=== PATIENT | female | born 1935 | race Caucasian/White ===

== ENCOUNTER → 2017-04-18 | Day surgery (SDC) | payer MEDICARE, OTHER ==
[2017-03-04 16:42] LABS: BASOPHILS # (AUTO) 0.1 (0.0-0.1); BASOPHILS % 0.8 % (0.0-1.0); EOSINOPHILS # (AUTO) 0.5 (0.0-0.4); HEMATOCRIT 45.3 % (34.2-44.1); LYMPHOCYTES # (AUTO) 3.6 (1.0-3.2); LYMPHOCYTES % 28.2 % (18.0-39.1); MEAN CORPUSCULAR HEMOGLOBIN 31.2 pg (28-32); MEAN CORPUSCULAR HGB CONC 33.1 g/dL (31-35); MEAN CORPUSCULAR VOLUME 94.2 fL (81-99); MONOCYTES # (AUTO) 1.3 (0.2-0.8); NEUTROPHILS # (AUTO) 7.1 (2.1-6.9); NEUTROPHILS % 56.5 % (38.7-80.0); PLATELET COUNT 391 x10e3/uL (140-360); RED BLOOD COUNT 4.81 x10e6/uL (3.6-5.1)
[2017-03-04 17:07] LABS: ALBUMIN 3.6 g/dL (3.5-5.0); ALBUMIN/GLOBULIN RATIO 0.8 (0.8-2.0); ANION GAP 14.8 mmol/L (8-16); CALCIUM 8.7 mg/dL (8.4-10.2); CREATININE, SERUM 0.99 mg/dL (0.57-1.11); POTASSIUM 3.8 mmol/L (3.5-5.1)
--- NOTE | 2017-03-04 19:17 | Diagnostic Imaging Report ---
PROCEDURE: Frontal and lateral views of the chest. COMPARISON: Chest x-ray 09/09/14 INDICATIONS: PRE-OP BREAST SURGERY TO REMOVE CANCER FINDINGS: Lines/tubes: None. Lungs: Diffuse hyperinflation. The diaphragms are flat. There is no evidence of mass or infiltrate. Mild bibasilar scarring is stable. The pulmonary vascular markings are normal. There is diffuse bronchial wall thickening suggestive of chronic bronchitis. Pleura: There is no pleural effusion or pneumothorax. Heart and mediastinum: The heart is mildly enlarged. Aorta is ectatic. No hilar lymphadenopathy. Bones: Diffusely demineralized. There is no focal osseous lesions. Surgical clips in left upper quadrant are stable. IMPRESSION: Stable pulmonary hyperinflation consistent with small airways disease. No acute cardiopulmonary process. Dictated by: Mj Clifford M.D. on 03/04/2017 at 19:25 Electronically approved by: Mj Clifford M.D. on 03/04/2017 at 19:25
[2017-04-15 13:10] LABS: BASOPHILS # (AUTO) 0.1 (0.0-0.1); BASOPHILS % 1.1 % (0.0-1.0); EOSINOPHILS # (AUTO) 0.6 (0.0-0.4); EOSINOPHILS % 6.1 % (0.0-6.0); HEMATOCRIT 43.7 % (34.2-44.1); HEMOGLOBIN 14.4 g/dL (12.0-16.0); LYMPHOCYTES % 32.8 % (18.0-39.1); MONOCYTES # (AUTO) 0.8 (0.2-0.8); MONOCYTES % 8.8 % (4.4-11.3); NEUTROPHILS # (AUTO) 4.7 (2.1-6.9); PLATELET COUNT 348 x10e3/uL (140-360); RED BLOOD COUNT 4.65 x10e6/uL (3.6-5.1); RED CELL DISTRIBUTION WIDTH 14.4 % (11.7-14.4)
[2017-04-15 13:27] LABS: ANION GAP 14.9 mmol/L (8-16); BLOOD UREA NITROGEN 13 mg/dL (7-26); BUN/CREATININE RATIO 15 (6-25); CALCIUM 8.9 mg/dL (8.4-10.2); CARBON DIOXIDE 27 mmol/L (22-29); CHLORIDE 106 mmol/L (98-107); CREATININE, SERUM 0.88 mg/dL (0.57-1.11); EST GLOMERULAR FILTRATION RATE > 60 ML/MIN (60-); GLUCOSE 86 mg/dL (74-118); POTASSIUM 3.9 mmol/L (3.5-5.1); SODIUM 144 mmol/L (136-145)
[~2017-04-18] MED LIST: ALLOPURINOL PO; BUMEX PO; BUPIVACAINE 0.25% 30ML SDV INJ ONE; DEXAMETHASONE SOD PHOS INJ 4 MG/ML VIAL ONE; FENTANYL CITRATE/PF 100MCG/2 ML INJ ONE; GLYCOPYRROLATE INJ 1MG/ 5 ML SYR ONE; KLOR-CON 1010 MEQ PO; LIDOCAINE HCL 2% LOCAL INJ 5 ML SDV VIAL INJ ONE; NEOSTIGMINE 5 MG/5ML SYR ONE; ONDANSETRON HCL INJ 2 MG/ML VIAL ONE; PENTAZOCINE-NA1 EACH PO; PHENYLEPHRINE HCL 1% 10 MG/ML VIAL ONE; POTASSIUM CHLO20 ME1 PO; PREVALITE PACKET4 GM PO; PROPOFOL IV EMULSION 10 MG/ML 20 ML VIAL ONE; ROCURONIUM BROMIDE 10 MG/ML 5ML VIAL ONE; SEVOFLURANE INHAL SOLN 250 ML PEN BTL ONE; TEMAZEPAM PO; ZOLOFT PO
--- NOTE | 2017-04-18 14:29 | Operative Report ---
DATE OF PROCEDURE: April 18, 2017 PREOPERATIVE DIAGNOSIS: Carcinoma of the left breast. POSTOPERATIVE DIAGNOSIS: Carcinoma of the left breast. OPERATION PERFORMED: Left partial mastectomy with left axillary sentinel node mapping and biopsy. ANESTHESIA: General. COMPLICATIONS: None. ESTIMATED BLOOD LOSS: 25 mL. DESCRIPTION OF PROCEDURE: With the patient lying in bed in the supine position under good general anesthesia, after having undergone a sentinel node mapping of the left axilla, the left breast was prepped with Betadine solution and draped in the usual manner. An incision was made in the upper outer aspect of the left breast. Incision was deepened into the subcutaneous tissue, and immediately a large mass was encountered. This appeared to extend all the way to the subareolar space underneath the nipple. The mass was then from underneath the nipple, and the margin of the nipple was then biopsied and sent for frozen section to make sure that it was not invaded, and this was benign. The mass was then slowly and carefully encircled. It was much larger than it appeared on the x-rays, but the mass was totally and completely removed with normal fat all the way around it and sent for pathological examination. Examination of the mass revealed that this was grossly contained within the specimen. The whole area was then thoroughly irrigated. Perfect hemostasis was ascertained. Using the same incision, the left axilla was then explored and the sentinel node was identified and slowly and carefully removed, and all of the attachments were ligated with 2-0 Vicryl and the lymph node was removed and sent for pathological examination. A 2nd lymph node in the area actually turned out to be some infiltration into the muscle itself. The whole area was then thoroughly irrigated. Perfect hemostasis was ascertained. The breast tissue that was left was then reapproximated with interrupted sutures of 2-0 chromic, and the skin was closed with interrupted vertical mattress sutures of 3-0 nylon. The family was explained after the procedure that because of the size of the mass, if any of the borders were to come back involved, the patient will need to have a mastectomy. The patient tolerated the procedure well and returned to the recovery room in stable condition. Job#: [id number]
--- NOTE | 2017-04-18 19:34 | Diagnostic Imaging Report ---
Lymphoscintigraphy Reason for Exam: Left breast cancer; scheduled for sentinel lymph node biopsy Radiopharmaceutical: Tc-99m filtered sulfur colloid 560 microcuries Report: The radiotracer was given as two separate injections intradermally at the edge of the left areola. A single focal area of markedly increased tracer accumulation is seen in the left axilla. Two additional foci of very mildly increased tracer accumulation are also seen higher in the left axilla. No accumulation of tracer is seen in the midline of the chest or in the neck. Impression: A single sentinel lymph node and two secondary lymph nodes are identified in the left axilla. Signed by: Dr. Beena Burnham M.D. on 04/18/2017 7:31 PM
== END | disposition home or self-care (01) ==
LOC: OR 08:26
PROVIDERS: ATTEND Surgery
DX: C50.912 Malignant neoplasm of unspecified site of left female breast (principal); C77.3 Secondary and unspecified malignant neoplasm of axilla and upper limb lymph nodes; I10 Essential (primary) hypertension; I44.7 Left bundle-branch block, unspecified; M06.9 Rheumatoid arthritis, unspecified; M19.90 Unspecified osteoarthritis, unspecified site; H91.90 Unspecified hearing loss, unspecified ear; K44.9 Diaphragmatic hernia without obstruction or gangrene; F32.9 Major depressive disorder, single episode, unspecified; Z01.810 Encounter for preprocedural cardiovascular examination; Z01.812 Encounter for preprocedural laboratory examination; Z01.818 Encounter for other preprocedural examination; Z87.01 Personal history of pneumonia (recurrent)
CPT/HCPCS: 19301; 36415 ×2; 38525; 38900; 71046; 78195; 80048; 80053; 85025 ×2; 88305; 88309; 88329; 88331; 93005; A9541; J1100; J2001; J2370; J2405

== ENCOUNTER 2017-06-08 08:26 | Observation (INO) | payer MEDICARE, OTHER ==
[2017-06-03 16:13] LABS: BASOPHILS # (AUTO) 0.1 (0.0-0.1); EOSINOPHILS # (AUTO) 0.4 (0.0-0.4); EOSINOPHILS % 4.9 % (0.0-6.0); HEMATOCRIT 42.6 % (34.2-44.1); HEMOGLOBIN 14.2 g/dL (12.0-16.0); LYMPHOCYTES # (AUTO) 3.3 (1.0-3.2); LYMPHOCYTES % 37.6 % (18.0-39.1); MEAN CORPUSCULAR HEMOGLOBIN 30.7 pg (28-32); MEAN CORPUSCULAR HGB CONC 33.3 g/dL (31-35); MEAN CORPUSCULAR VOLUME 92.2 fL (81-99); MONOCYTES # (AUTO) 0.8 (0.2-0.8); MONOCYTES % 9.7 % (4.4-11.3); NEUTROPHILS % 46.6 % (38.7-80.0); PLATELET COUNT 319 x10e3/uL (140-360); RED BLOOD COUNT 4.62 x10e6/uL (3.6-5.1); RED CELL DISTRIBUTION WIDTH 14.4 % (11.7-14.4)
[2017-06-03 16:28] LABS: ANION GAP 10.8 mmol/L (8-16); CALCIUM 8.9 mg/dL (8.4-10.2); CREATININE, SERUM 0.93 mg/dL (0.57-1.11); POTASSIUM 3.8 mmol/L (3.5-5.1)
[~2017-06-08] VITALS: Ht 165.1 cm; Wt 87.7 kg
[~2017-06-08 08:26] MED LIST changes: -BUPIVACAINE 0.25% 30ML SDV INJ ONE; -DEXAMETHASONE SOD PHOS INJ 4 MG/ML VIAL ONE; -FENTANYL CITRATE/PF 100MCG/2 ML INJ ONE; -GLYCOPYRROLATE INJ 1MG/ 5 ML SYR ONE; -LIDOCAINE HCL 2% LOCAL INJ 5 ML SDV VIAL INJ ONE; -NEOSTIGMINE 5 MG/5ML SYR ONE; -ONDANSETRON HCL INJ 2 MG/ML VIAL ONE; -PHENYLEPHRINE HCL 1% 10 MG/ML VIAL ONE; -PROPOFOL IV EMULSION 10 MG/ML 20 ML VIAL ONE; -ROCURONIUM BROMIDE 10 MG/ML 5ML VIAL ONE; -SEVOFLURANE INHAL SOLN 250 ML PEN BTL ONE
--- OUTSIDE RECORDS SUMMARY | 2017-06-08 08:28 | XMS REPORT ---
Author Author [facility] Address Unknown Phone Unavailable Care Team Providers Care Environmental Services Worker Name Role Phone LUPE EASLEY Unavailable Unavailable HECTOR, LIZY Unavailable Unavailable Problems This patient has no known problems. Allergies, Adverse Reactions, Alerts This patient has no known allergies or adverse reactions. Medications This patient has no known medications. Results Test Description Test Time Test Comments Text Results Atomic Results Result Comments NM LYMPHOSCINTIGRAPHY INCL INJ [place] [address] Patient Name: OSMANI COY MR #: [id number] : 1935 Age/Sex: 81/F Req #: [id number] Adm Physician: Ordered by: LUPE EASLEY MD Report #: [id number] Location: OR Room/Bed: Procedure: [id number] NM/NM LYMPHOSCINTIGRAPHY INCL INJ Exam Date: Exam Time: REPORT STATUS: Signed Lymphoscintigraphy Reason for Exam: Left breast cancer; scheduled for sentinel lymph node biopsy Radiopharmaceutical: Tc-99m filtered sulfur colloid 560 microcuries Report: The radiotracer was given as two separate injections intradermally at the edge of the left areola. A single focal area of markedly increased tracer accumulation is seen in the left axilla. Two additional foci of very mildly increased tracer accumulation are also seen higher in the left axilla. No accumulation of tracer is seen in the midline of the chest or in the neck. Impression: A single sentinel lymph node and two secondary lymph nodes are identified in the left axilla. Signed by: Dr. Gurjit Burnham M.D. on 04/18/2017 7:31 PM Dictated By: GURJIT BURNHAM MD 30 Transcribed By: CHATO on 04/18/171930 COPY TO: LUPE EASLEY MD CHEST 2 VIEWS [place] [address] Patient Name: OSMANI COY MR #: [id number] : 1935 Age/Sex: 81/F Req # : [id number] Adm Physician: Ordered by: LUPE EASLEY MD Report #: [id number] Location: OR Room/Bed: Procedure: [id number] DX/CHEST 2 VIEWS Exam Date: 03/04/17 Exam Time : 1640 REPORT STATUS: Signed PROCEDURE: Frontal and lateral views of the chest. COMPARISON: Chest x-ray 09/09/14 INDICATIONS: PRE-OP BREAST SURGERY TO REMOVE CANCER FINDINGS: Lines/tubes: None. Lungs: Diffuse hyperinflation. The diaphragms are flat. There is no evidence of mass or infiltrate. Mild bibasilar scarring is stable. The pulmonary vascular markings are normal. There is diffuse bronchial wall thickening suggestive of chronic bronchitis. Pleura: There is no pleural effusion or pneumothorax. Heart and mediastinum: The heart is mildly enlarged. Aorta is ectatic. No hilar lymphadenopathy. Bones: Diffusely demineralized. There is no focal osseous lesions. Surgical clips in left upper quadrant are stable. IMPRESSION: Stable pulmonary hyperinflation consistent with small airways disease. No acute cardiopulmonary process. Dictated by: Jonathan Clifford M.D. on 2017 at 19:25 Electronically approved by: Jonathan Clifford M.D. on 2017 at 19:25 Dictated By: JONATHAN CLIFFORD MD 24 Transcribed By : JEROME on 03/04/171924 COPY TO: LUPE EASLEY MD UNI DIG CONFIRM EMILY MAMMO LT [place] [address] Patient Name: OSMANI COY MR #: [id number] : 1935 Age/Sex: 81/F Req #: [id number] Adm Physician: Ordered by: LUPE EASLEY MD Report #: [id number] Location: Room/Bed: Procedure: [id number] MG/UNI DIG CONFIRM EMILY MAMMO LT Exam Date: 01/13/17 Exam Time: 1420 REPORT STATUS: Signed # [id number] - NLOCMAML #UNILATERAL LEFT SCREENING MAMMOGRAM POST-PROCEDURE IMAGING FOR MARKER PLACEMENT: 01/13/2017 Comparison is made to exams dated: 01/13/2017 ultrasound biopsy, 12/27/2016 ultrasound and 12/27/2016 mammogram - [facility]. The tissue of the left breast is heterogeneously dense. Multiple calcifications are present in the breast. Biopsy clip marker present amongst the calcifications. As there was no discrete mass present on the pre biopsy mammogram the exact location of the clip is indeterminate in significance. IMPRESSION: SUSPICIOUS OF MALIGNANCY Follow-up with ACR/ACS guidelines for post biopsy results. Ascencion Fraga Jr., D.O. cw/:01/13/2017 14:56:07 Armature Straightener: Gurjit SPENCE)(M), [facility] Mammogram BI-RADS: 4c Suspicious abnormality - moderate concern but not classic for malignancy Dictated By: ASCENCION FRAGA DO 55 Transcribed By: VALERI on 01/13/171455 COPY TO: LUPE EASLEY MD BX BRST 1ST LESION US IMAG-LT [place] [address] Patient Name: OSMANI COY MR #: [id number] : 1935 Age/Sex: 81/F Req #: [id number] Adm Physician: Ordered by: LUPE EASLEY MD Report #: [id number] Location: US Room/Bed: Procedure: [id number] US/BX BRST 1ST LESION US IMAG-LT Exam Date: Exam Time: REPORT STATUS: Signed THIS REPORT HAS BEEN AMENDED. #[id number] - [id number] ULTRASOUND GUIDED BIOPSY: 01/13/2017 PATIENT CONSENT: According to [facility] requirements, a time out was performed, correct site was localized and the patient was consented. PROCEDURE DESCRIPTION: Using full barrier sterile technique, 1% Lidocaine local anesthesia , and real time ultrasound guidance, the palpable mass at 3:00 in the left breast was biopsied using a 14 ga core device. A total of 5 core biopsies were performed. Specimens were submitted for histology. A micromarker was placed at the biopsy site for future reference. A sterile bandage was applied at the entry site. The patient was sent for a post biopsy mammogram with no immediate complications noted. Correlation is made to exams dated: ultrasound and 12/27/2016 mammogram - [facility]. IMPRESSION: ULTRASOUND GUIDED BIOPSY Follow-up with ACR/ACS guidelines. Ascencion reyes/valeri:01/14/2017 13:33:00 Armature Straightener: LOVE TA RT, [facility] [id number] AMENDMENT: 01/26/2017 Ascencion Fraga Jr., D.O. Results of the ultrasound guided breast biopsy are positive for invasive lobular carcinoma. Dictated By: ASCENCION FRAGA DO 1333 Transcribed By: VALERI on 1025 COPY TO: LUPE EASLEY MD US BREAST LIMITED LEFT [place] [address] Patient Name: OSMANI COY MR #: [id number] : 1935 Age/Sex: 81/F Req #: [id number] Adm Physician: Ordered by: LIZY HECTOR MD Report #: [id number] Location: MAMMO Room/Bed: Procedure: [id number] US/US BREAST LIMITED LEFT Exam Date: Exam Time: REPORT STATUS: Signed #[id number] - USBRELIMLT ULTRASOUND OF THE LEFT BREAST : 12/27/2016 Comparison is made to exam dated: 12/27/2016 mammogram - [facility]. Color flow and real-time ultrasound were performed on the left breast over the palpable left breast mass. -In the region of the palpable mass there is a highly suspicious hypoechoic ill defined shadowing mass at the 3 o' clock position measuring 2.6 x 2.2 cm. IMPRESSION: HIGHLY SUGGESTIVE OF MALIGNANCY Mass in the left breast is suspicious for malignancy and a biopsy is necessary A phone call was made to Dr. Blair Hector and the case was discussed. Ascencion Fraga Jr., D.O. cw/:12/27/2016 15:05 :36 Armature Straightener: LOVE EVANS, [facility] letter sent: Biopsy Required Ultrasound BI-RADS: 5 Highly suggestive of malignancy Dictated By: ASCENCION FRAGA DO 1502 Transcribed By: VALERI on 150 COPY TO: LIZY HECTOR MD MAMMOGRAPHY DIGITAL DX BILAT [place] [address] Patient Name: OSMANI COY MR #: [id number] : 1935 Age/Sex: 81/F Req #: [id number] [facility] Physician: Ordered by: LIZY HECTOR MD Report #: [id number] Location: MAMMO Room/Bed: Procedure: [id number] MG/MAMMOGRAPHY DIGITAL DX BILAT Exam Date: 12/27/16 Exam Time: 1246 REPORT STATUS: Signed # [id number] - MGDXBIL #BILATERAL DIGITAL DIAGNOSTIC MAMMOGRAM WITH CAD: No prior exams were available for comparison. Current study contains 6 films. The tissue of both breasts is heterogeneously dense. This may lower the sensitivity of mammography. Current study was also evaluated with a Computer Aided Detection (CAD) system. There are scattered calcifications and axillary lymph nodes in both breasts. -A palpable mass marker overlies the left breast in the upper outer aspect near the 3 o'clock position. There is adjacent to the marker tissue asymmetry and areas outlined as suspicious with CAD analysis. IMPRESSION: INCOMPLETE: NEEDS ADDITIONAL IMAGING EVALUATION Tissue asymmetry adjacent to a palpable mass marker requires additional evaluation. An ultrasound is recommended and will be performed today. Ascencion Fraga Jr., D.O. cw/: 15:13:00 Armature Straightener: Gurjit EVANS(R)(Lizzie), [facility] letter sent: Additional Imaging Needed Mammogram BI-RADS: 0 Indeterminate Dictated By: ASCENCION FRAGA DO 2571 Transcribed By: VALERI on 12/27/16 8236 COPY TO: LIZY HECTOR MD
[2017-06-08] MEDS: SODIUM CHLORIDE 0.9% 1000ML 1,000 ML IV SCH ×2 (10:41→20:41)
[2017-06-08] MEDS ORDERED: FENTANYL CITRATE/PF 100MCG/2 ML INJ ONE ×2 (10:44→17:50)
[2017-06-08] MEDS ORDERED: ONDANSETRON HCL INJ 2 MG/ML VIAL IV PRN (10:45)
[2017-06-08] MEDS ORDERED: ACETAMINOPHEN 1000 MG/100 ML IV PRN (10:45)
--- NOTE | 2017-06-08 12:38 | Operative Report ---
DATE OF PROCEDURE: June 08, 2017 PREOPERATIVE DIAGNOSIS: Carcinoma of the left breast. POSTOPERATIVE DIAGNOSIS: Carcinoma of the left breast. OPERATION PERFORMED: Left total mastectomy. THAI MASSEUR: CHRIS Bernstein. ANESTHESIA: General. COMPLICATIONS: None. ESTIMATED BLOOD LOSS: 75 mL. DESCRIPTION OF PROCEDURE: With the patient lying in bed in the supine position, under good general anesthesia, the left chest and breast were prepped with Betadine solution and draped in the usual manner. An elliptical incision was made to include the nipple-areolar complex as well as the previous incision from the previous lumpectomy. Incision was then deepened through the subcutaneous tissue, and flaps were then developed all the way around. The borders of the flaps were medially the sternum, superiorly the clavicle, inferiorly the rectus fascia and laterally the latissimus. The breast was then taken off the pectoralis major muscle with the cautery, and perfect hemostasis was ascertained. The entire breast was removed and sent for pathological examination. The whole area was thoroughly irrigated. Perfect hemostasis was ascertained. The 10 flat [place] drain was left in the wound and brought out through separate stab wound incision. The skin was then closed using interrupted vertical mattress sutures of 2-0 and 3-0 silk. A dressing was applied. The sponge, lap and needle count was correct. Patient tolerated the procedure well and returned to the recovery room in stable condition. Job#: [id number]
[2017-06-08 13:00] VITALS: BP 143/64
[2017-06-08] MEDS ORDERED: CEFAZOLIN SOD 1 GM/NS 50ML 50 ML IV SCH (14:00)
[2017-06-08 14:31] VITALS: BP 131/59
[2017-06-08 16:02] VITALS: BP 143/64
[2017-06-08] MEDS: PANTOPRAZOLE 40 MG 10ML VIAL IV SCH (16:21)
[2017-06-08] MEDS: CEFAZOLIN SOD 1 GM VIAL IV SCH (17:11)
[2017-06-08] MEDS ORDERED: PROPOFOL IV EMULSION 10 MG/ML 20 ML VIAL ONE (17:26)
[2017-06-08] MEDS ORDERED: DEXAMETHASONE SOD PHOS INJ 4 MG/ML VIAL ONE (17:26)
[2017-06-08] MEDS ORDERED: SEVOFLURANE INHAL SOLN 250 ML PEN BTL ONE (17:26)
[2017-06-08] MEDS ORDERED: ONDANSETRON HCL INJ 2 MG/ML VIAL ONE (17:26)
[2017-06-08] MEDS ORDERED: ROCURONIUM BROMIDE 10 MG/ML 5ML VIAL ONE (17:26)
[2017-06-08] MEDS ORDERED: LIDOCAINE HCL 2% LOCAL INJ 5 ML SDV VIAL INJ ONE (17:26)
[2017-06-08] MEDS ORDERED: GLYCOPYRROLATE INJ 1MG/ 5 ML SYR ONE (17:26)
[2017-06-08] MEDS ORDERED: NEOSTIGMINE 5 MG/5ML SYR ONE (17:26)
[2017-06-08] MEDS ORDERED: DIPHENHYDRAMINE HCL 25 MG CAP PO PRN (20:15)
[2017-06-08] MEDS: HYDROCODONE/APAP 7.5MG-325MG 1 EA TAB PO PRN (20:24)
[2017-06-08 20:31] VITALS: BP 123/57
[2017-06-08 23:27] VITALS: BP 123/57
[2017-06-09 00:01] VITALS: BP 116/56
[2017-06-09] MEDS: HYDROCODONE/APAP 7.5MG-325MG 1 EA TAB PO PRN ×2 (00:23→05:05)
[2017-06-09] MEDS: CEFAZOLIN SOD 1 GM VIAL IV SCH (01:01)
[2017-06-09 04:14] VITALS: BP 116/57
[2017-06-09] MEDS: SODIUM CHLORIDE 0.9% 1000ML 1,000 ML IV SCH (06:41)
[2017-06-09 07:57] VITALS: BP 147/67
[2017-06-09] MEDS ORDERED: POTASSIUM CHLORIDE 20 MEQ TAB CR PO SCH (09:00)
[2017-06-09] MEDS: PANTOPRAZOLE 40 MG 10ML VIAL IV SCH (10:09)
[2017-06-09 10:53] VITALS: BP 147/67
[2017-06-09 11:44] VITALS: BP 109/56
[2017-06-09] MEDS ORDERED: TYLENOL WITH C1 EACH PO (13:01)
[2017-06-09] MEDS ORDERED: KEFLEX500 MG PO (13:03)
== END 2017-06-09 13:55 | disposition home or self-care (01) ==
LOC: OR 08:26 → MED/SURG 13:23
PROVIDERS: ADMIT Surgery; ATTEND Surgery
DX: D05.82 Other specified type of carcinoma in situ of left breast (principal)
CPT/HCPCS: 19303; 36415; 80048; 85025; 88307; G0378 ×2; J0690 ×2; J1100; J2001; J2405; J7030

== ENCOUNTER → 2017-07-06 | Day surgery (SDC) | payer MEDICARE, OTHER ==
[~2017-07-06] MED LIST changes: +BUPIVACAINE 0.25%/EPI 30ML SDV INJ ONE; +CEFAZOLIN SOD 1 GM VIAL ONE; +EPHEDRINE SULFATE INJ 50 MG/10 ML SYR ONE; +FENTANYL CITRATE/PF 100MCG/2 ML INJ ONE; +KEFLEX500 MG PO; +LIDOCAINE HCL 1% LOCAL INJ 20 ML VIAL ONE; +LIDOCAINE HCL 2% LOCAL INJ 5 ML SDV VIAL INJ ONE; +NEOSTIGMINE 1 MG/ML 10ML VIAL ONE; +ONDANSETRON HCL INJ 2 MG/ML VIAL ONE; +PROPOFOL IV EMULSION 10 MG/ML 20 ML VIAL ONE; +TYLENOL WITH C1 EACH PO
--- OUTSIDE RECORDS SUMMARY | 2017-07-06 05:32 | XMS REPORT | Continuity of Care Document ---
Author Author [facility] Organization [facility] Address [address] [place] [address] Phone Unavailable Care Team Providers Care Medical Device Sales Consultant Name Role Phone LIZY OJEDA MD PCP Insurance Providers Guarantor Felicia Uriarte Address [address] [place] [address] Email N Payer Miscellaneous Ppo Policy Number [id number] Subscriber's Name ChanelleOziel yungcie N Relationship 18 Self / Same As Patient Group Number PLAN F Group Name RETIRED Effective Date 09 Payer Medicare A & B Policy Number [id number] Subscriber's Name Oziel Uriartecie N Relationship 18 Self / Same As Patient Group Number [id number] Group Name RETIRED Effective Date 98 Advance Directives Directive Response Recorded Date/Time Does the patient have an advance directive? Yes 06/08/17 1:00pm If yes, is advance directive on file with [facility]? No 06/08/17 1:00pm If not on file with [facility] will patient provide a copy? Yes 06/08/17 1:00pm Do you have a Directive to Physician? No 06/03/17 3:09pm Do you have a Medical Power of Transportation Economics Teacher? Yes 06/03/17 3:09pm Do you have an out of hospital Do Not Resuscitate Order? No 06/03/17 3:09pm Do you have any special needs we should be aware of? No 06/03/17 3:09pm Do you have a support person here with you today? Yes 06/03/17 3:10pm Did patient receive Notice of Privacy Practices? Yes 06/03/17 3:10pm Did patient receive patient rights and responsibilities? Yes 06/03/17 3:10pm Problems No problem information available. Medications Current Home Medications Medication Dose Units Route Directions Days Qty Instructions Start Date Acetaminophen With Codeine (Tylenol With Codeine #3 Tablet) 1 Each Tablet 300 Mg Oral as needed for Pain TAKE 1 OR 1.5 TAP EVERY 4-6 HOURS NEEDED FOR PAIN Bumex Oral Daily Cephalexin Monohydrate (Keflex) 500 Mg Capsule 500 Mg Oral Daily 15 Cholestyramine/Aspartame (Prevalite Packet) 4 Gm Packet Oral Daily Potassium Chloride 20 Meq Tab.er.prt Meq Oral Daily Zoloft Oral Daily Past Home Medications Medication Directions Ordered Status Allopurinol , 300 Mg Oral Daily Discontinued Bumex , 2 Mg Oral Daily Discontinued Pentazocine Hcl/Naloxone Hcl (Pentazocine-Naloxone Tablet) 1 Each Tablet, Oral As Needed Discontinued Potassium Chloride (Klor-Con 10) 10 Meq Tablet.er, 10 Meq Oral Daily Discontinued Temazepam , 30 Mg Oral Bedtime Discontinued Zoloft , 100 Mg Oral Daily Discontinued Social History Social History Problem Response Recorded Date/Time Onset Date Status Hx Psychiatric Problems No 06/08/2017 1:00pm Not Applicable Not Applicable Hx Eating Disorder No 07/29/2014 4:39pm Not Applicable Not Applicable Hx Substance Use Disorder No 07/29/2014 4:39pm Not Applicable Not Applicable Hx Depression Yes 06/08/2017 1:00pm Not Applicable Not Applicable Hx Alcohol Use No 06/08/2017 1:00pm Not Applicable Not Applicable Hx Substance Use Treatment No 06/08/2017 1:00pm Not Applicable Not Applicable Hx Physical Abuse No 06/08/2017 1:00pm Not Applicable Not Applicable Smoking Status Start Date Stop Date Never Smoker Hospital Discharge Instructions No hospital discharge instruction information available. Plan of Care Discharge Date 06/09/17 1:55pm Disposition HOME, SELF-CARE Instructions/Education Provided Infection Control Prescriptions See Medication Section Additional Instructions/Education REGULAR DIET ACTIVITY TOLERATED BUT AVOID LIFTING MORE THAN 20 POUNDS WITH LEFT HAND TILL APPOINTMENT WITH DR. EASLEY. SCHEDULE FOLLOW UP APPOINTMENT WITH HIM FOR TUESDAY/TUESDAY FOR REMOVAL OF DRAIN TEL: [phone] EMPTY DRAIN EVERY EVENING AND EVERY MORNING, RECORD THE OUTPUT AND BRING TO APPOINTMENT. Functional Status Query Response Date Recorded Ambulation Ability Minimum Assistance June 08, 2017 1:00pm Toileting Ability Minimum Assistance June 08, 2017 1:00pm Allergies, Adverse Reactions, Alerts No known allergies. Immunizations No immunization information available. Vital Signs Acute Vital Signs Vital Response Date/Time Temperature (Fahrenheit) 96.7 degrees F (97.6 - 99.5) 06/09/2017 11:44am Pulse Pulse Rate (adult) 56 bpm (60 - 90) 06/09/2017 11:44am Respiratory Rate 16 bpm (12 - 24) 06/09/2017 11:44am Blood Pressure 109/56 mm Hg 06/09/2017 11:44am Height 5 ft 5 in 06/08/2017 1:00pm Weight 193.38 lb 06/08/2017 2:32pm Body Mass Index 32.2 kg/m^2 06/08/2017 2:32pm Results Laboratory Results Test Name Result Units Flags Reference Collection Date/Time Result Date/ Time Comments Total Bilirubin 0.6 mg/dL 0.2-1.2 03/04/2017 4:30pm 03/04/2017 5:16pm Aspartate Amino Transf (AST/SGOT) 27 IU/L 5-34 03/04/2017 4:30pm 2017 5:16pm Alanine Aminotransferase (ALT/SGPT) 22 IU/L 0-55 03/04/2017 4:30pm 06/2017 5:16pm Total Protein 8.0 g/dL 6.5-8.1 03/04/2017 4:30pm 03/04/2017 5:16pm Albumin 3.6 g/dL 3.5-5.0 03/04/2017 4:30pm 03/04/2017 5:16pm Globulin 4.4 g/dL H 2.3-3.5 03/04/2017 4:30pm 03/04/2017 5:16pm Albumin/Globulin Ratio 0.8 0.8-2.0 03/04/2017 4:30pm 03/04/2017 5: 16pm Alkaline Phosphatase 109 IU/L 40-150 03/04/2017 4:30pm 03/04/2017 5: 16pm White Blood Count 8.64 x10e3/uL 4.8-10.8 06/03/2017 4:05pm 06/03/2017 4 :13pm Red Blood Count 4.62 x10e6/uL 3.6-5.1 06/03/2017 4:05pm 06/03/2017 4: 13pm Hemoglobin 14.2 g/dL 12.0-16.0 06/03/2017 4:05pm 06/03/2017 4:13pm Hematocrit 42.6 % 34.2-44.1 06/03/2017 4:05pm 06/03/2017 4:13pm Mean Corpuscular Volume 92.2 fL 81-99 06/03/2017 4:05pm 06/03/2017 4: 13pm Mean Corpuscular Hemoglobin 30.7 pg 28-32 06/03/2017 4:05pm 06/03/2017 4:13pm Mean Corpuscular Hemoglobin Concent 33.3 g/dL 31-35 06/03/2017 4:05pm 06/03/2017 4:13pm Red Cell Distribution Width 14.4 % 11.7-14.4 06/03/2017 4:05pm 2017 4:13pm Platelet Count 319 x10e3/uL 140-360 06/03/2017 4:05pm 06/03/2017 4: 13pm Neutrophils (%) (Auto) 46.6 % 38.7-80.0 06/03/2017 4:05pm 06/03/2017 4: 13pm Lymphocytes (%) (Auto) 37.6 % 18.0-39.1 06/03/2017 4:05pm 06/03/2017 4: 13pm Monocytes (%) (Auto) 9.7 % 4.4-11.3 06/03/2017 4:05pm 06/03/2017 4: 13pm Eosinophils (%) (Auto) 4.9 % 0.0-6.0 06/03/2017 4:05pm 06/03/2017 4: 13pm Basophils (%) (Auto) 1.0 % 0.0-1.0 06/03/2017 4:05pm 06/03/2017 4:13pm IM GRANULOCYTES % 0.2 % 0.0-1.0 06/03/2017 4:05pm 06/03/2017 4:13pm Neutrophils # (Auto) 4.0 2.1-6.9 06/03/2017 4:05pm 06/03/2017 4:13pm Lymphocytes # (Auto) 3.3 H 1.0-3.2 06/03/2017 4:05pm 06/03/2017 4: 13pm Monocytes # (Auto) 0.8 0.2-0.8 06/03/2017 4:05pm 06/03/2017 4:13pm Eosinophils # (Auto) 0.4 0.0-0.4 06/03/2017 4:05pm 06/03/2017 4:13pm Basophils # (Auto) 0.1 0.0-0.1 06/03/2017 4:05pm 06/03/2017 4:13pm Absolute Immature Granulocyte (auto 0.02 x10e3/uL 0-0.1 06/03/2017 4: 05pm 06/03/2017 4:13pm Sodium Level 142 mmol/L 136-145 06/03/2017 4:05pm 06/03/2017 4:29pm Potassium Level 3.8 mmol/L 3.5-5.1 06/03/2017 4:05pm 06/03/2017 4:29pm Chloride Level 109 mmol/L H 98-107 06/03/2017 4:05pm 06/03/2017 4:29pm Carbon Dioxide Level 26 mmol/L 22-29 06/03/2017 4:05pm 06/03/2017 4: 29pm Anion Gap 10.8 mmol/L 8-16 06/03/2017 4:05pm 06/03/2017 4:29pm Blood Urea Nitrogen 17 mg/dL 7-06/03/2017 4:05pm 06/03/2017 4:29pm Creatinine 0.93 mg/dL 0.57-1.11 06/03/2017 4:05pm 06/03/2017 4:29pm BUN/Creatinine Ratio 18 6-25 06/03/2017 4:05pm 06/03/2017 4:29pm Estimat Glomerular Filtration Rate 58 ML/MIN L 60- 06/03/2017 4:05pm 07/2017 4:29pm Ranges were taken from the National Kidney Disease Education Program and the National [employer] literature. Reference ranges: 60 or greater: Normal 16-59 (for 3 consecutive months): Chronic kidney disease 15 or less: Kidney failure Glucose Level 78 mg/dL 74-118 06/03/2017 4:05pm 06/03/2017 4:29pm Calcium Level 8.9 mg/dL 8.4-10.2 06/03/2017 4:05pm 06/03/2017 4:29pm Procedures Procedure Status Date Provider(s) PARTIAL MASTECTOMY Completed 04/18/17 LUPE EASLEY MD BIOPSY/REMOVAL LYMPH NODES Completed 04/18/17 LUPE EASLEY MD IO MAP OF SENT LYMPH NODE Completed 04/18/17 LUPE EASLEY MD Mastectomy, modified radical Completed 06/08/17 LUPE EASLEY MD Limited ultrasound of left breast Active 12/27/16 LIZY OJEDA MD Bx breast 1st lesion US imag Active 01/13/17 LUPE EASLEY MD X-ray of chest, two views Active 03/04/17 LUPE EASLEY MD Encounters Encounter Location Arrival/Admit Date Discharge/Depart Date Attending Provider Discharged Inpatient (obs) [facility] 06/08/17 1:23pm 02/14 1:55pm LUPE EASLEY MD Registered Surgical Day Care [facility] 04/18/17 8:26am LUPE EASLEY MD Registered Clinic [facility] 01/13/17 1:21pm LUPE EASLEY MD Registered Clinic [facility] 12/27/16 12:01pm LIZY OJEDA MD
--- NOTE | 2017-07-06 10:16 | Operative Report ---
DATE OF PROCEDURE: July 06, 2017 PREOPERATIVE DIAGNOSIS: Calcified mass of the left 1st finger. POSTOPERATIVE DIAGNOSIS: Calcified mass of the left 1st finger. OPERATION PERFORMED: Resection of calcified mass of the left 1st finger at the distal proximal interphalangeal joint. ANESTHESIA: Local 1% Xylocaine and MAC. RESIDENT PROGRAM SPECIALIST: CHRIS Bernstein. COMPLICATIONS: None. ESTIMATED BLOOD LOSS: Minimal. DESCRIPTION OF PROCEDURE: With the patient lying in bed in the supine position under good IV sedation, the left arm was prepped with Betadine solution and draped in the usual manner. Standard digital block was then performed using 1% Xylocaine solution. The left 1st finger was totally anesthetized. A tourniquet was then placed on the left 1st finger. An incision was made right over the palpable mass in the distal PIP joint. Immediately right underneath the skin, a calcified hard mass was encountered emanating from the joint itself. This was followed all the way down until totally and completely removed and resected. The tendons were identified and spared. The tendons were actually splayed by the mass. Once the mass was totally resected, the whole area was thoroughly irrigated. Perfect hemostasis was ascertained. The tendon was then reapproximated in the midline to its natural position using interrupted sutures of 4-0 Vicryl. The subcutaneous tissue was approximated with 4-0 Vicryl and the skin was closed with interrupted sutures of 4-0 nylon. A dressing was applied. The sponge, lap and needle count was correct. The patient tolerated the procedure well, and returned to the recovery room in stable condition. Job#: [id number] SAMUEL
== END | disposition home or self-care (01) ==
LOC: OR 05:29
PROVIDERS: ATTEND Surgery
DX: D21.12 Benign neoplasm of connective and other soft tissue of left upper limb, including shoulder (principal); I10 Essential (primary) hypertension; M05.20 Rheumatoid vasculitis with rheumatoid arthritis of unspecified site; H91.90 Unspecified hearing loss, unspecified ear; F32.9 Major depressive disorder, single episode, unspecified; Z86.19 Personal history of other infectious and parasitic diseases
CPT/HCPCS: 26116; 88305; 93005; J0690; J2001 ×2; J2405; J2710

== ENCOUNTER 2018-10-22 01:39 | Emergency (ER) | payer MEDICARE, OTHER ==
[~2018-10-22] VITALS: Ht 165.1 cm; Wt 87.5 kg
[~2018-10-22 01:39] MED LIST changes: -BUPIVACAINE 0.25%/EPI 30ML SDV INJ ONE; -CEFAZOLIN SOD 1 GM VIAL ONE; -EPHEDRINE SULFATE INJ 50 MG/10 ML SYR ONE; -FENTANYL CITRATE/PF 100MCG/2 ML INJ ONE; -LIDOCAINE HCL 1% LOCAL INJ 20 ML VIAL ONE; -LIDOCAINE HCL 2% LOCAL INJ 5 ML SDV VIAL INJ ONE; -NEOSTIGMINE 1 MG/ML 10ML VIAL ONE; -ONDANSETRON HCL INJ 2 MG/ML VIAL ONE; -PROPOFOL IV EMULSION 10 MG/ML 20 ML VIAL ONE
--- OUTSIDE RECORDS SUMMARY | 2018-10-22 01:43 | XMS REPORT | Continuity of Care Document ---
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 [facility] HISTORY OF ARTHRITIS Active 12/13/2013 Condition 12/14/2013 [facility] [place]US POST HYSTERECTOMY Active 12/13/2013 Condition 12/14/2013 [facility] STATUS POST KNEE REPLACEMENT Active 12/13/2013 Condition 12/14/2013 [facility] BENIGN NEOPLASM OF CEREBRAL MENINGES Active 12/13/2013 Condition 12/14/2013 [facility] HEAD LAC S/P FALL Active 11/25/2013 [facility] CONTUSIONS VS MENINGIOMA Active 11/25/2013 [facility] Articular gout (disorder) Resolved Problem 09/13/2015 [facility] CONTUSION NOS Active [facility] M19.041 Active [facility] PRIMARY OSTEOARTHRITIS, RIGHT HAND Active [facility] GOUT, UNSPECIFIED Active [facility] Medications Medication Details Route Status Patient Instructions Ordering Provider Order Date Source MESHA-CON CR-TABS Active 12/13/2013 [facility] ALLOPURINOL TABS Active 12/13/2013 [facility] Ibuprofen 600 MG Oral Tablet [Ibu] 600 mg, PO, Q6H, Pain, Take with food, # 30 tab, 0 Refill(s)Special Instructions: Take with food Active 11/27/2013 [facility] pneumococcal capsular polysaccharide type 1 vaccine / pneumococcal capsular polysaccharide type 10A vaccine / pneumococcal capsular polysaccharide type 11A vaccine / pneumococcal capsular polysaccharide type 12F vaccine / pneumococcal capsular polysacchar 0.5 ml, Route: IM, Drug Form: INJ, Daily, Start date: 11/27/13 9:00:00, Stop date: 11/27/13 21:00:00Notes: (Same as: Pneumovax 23) Refrigerate Inactive 11/27/2013 [facility] Influenza Virus Vaccine, Inactivated J-Cuzrwjnv-17-2007 (H3N2)-like virus (O-Wrtcptx-264-2007 [facility] [place] [facility] X-175C) strain / Influenza Virus Vaccine, Inactivated I-Axnlucsj-77-2007, IVR-148 (H1N1) strain / Influenza Virus Vaccine, Inactivated, H-Cwblfxj-6-lik 0.5 ml, Route: IM, Drug Form: SUSP, Daily, Start date: 11/27/13 9:00:00, Stop date: 11/27/13 21:00:00Notes: (Same as: Fluzone Quadrivalent) Inactive 11/27/2013 [facility] K-Dur 20 40 mEq, 2 tab, Route: PO, Drug form: ERTAB, ONCE, Start date: 11/27/13 3:00:00, Stop date: 11/27/13 3:00:00Notes: (Same as: K-Dur 20) "Do Not Crush" With food and full glass of water Inactive 11/27/2013 [facility] NS 1,000 mL 1,000 mL, Rate: 75 ml/hr, Infuse over: 13.3 hr, Route: IV, Dosing Weight 72.727 kg, Total Volume: 1,000, Start date: 11/26/13 12:11:00, Duration: 30 day, Stop date: 12/26/13 12:10:00 No Longer Active 11/26/2013 [facility] Alendronic acid 70 MG Oral Tablet 70 mg=1 tab, PO, Q7D, 0 Refill(s) Active 11/26/2013 [facility] Naloxone 0.5 MG / Pentazocine 50 MG Oral Tablet 3 tab, PO, TID, 0 Refill(s) Active 11/26/2013 [facility] bumetanide 2 mg oral tablet 2 mg=1 tab, PO, BID, # 30 tab, 0 Refill(s) Active 11/26/2013 [facility] sertraline 100 mg oral tablet 100 mg=1 tab, PO, Daily, # 30 tab, 0 Refill(s) Active 11/26/2013 [facility] allopurinol 300 mg oral tablet 300 mg=1 tab, PO, Daily, # 30 tab, 0 Refill(s) Active 11/26/2013 [facility] temazepam 30 mg oral capsule 30 mg=1 cap, PO, Bedtime, 0 Refill(s) Active 11/26/2013 [facility] Saline Flush 0.9% 10 ml, Route: IVP, Drug Form: INJ, Dosing Weight 72.727, kg, Q12H, Start date: 11/26/13 9:00:00, Duration: 30 day, Stop date: 12/25/13 21:00:00Notes: Same as: BD Posiflush Sterile No Longer Active 11/26/2013 [facility] sennosides, SENIOR CARE 8.6 mg, 1 tab, Route: PO, Drug Form: TAB, Dosing Weight 72.727, kg, Q12H, Start date: 11/26/13 9:00:00, Duration: 30 day, Stop date: 12/25/13 21:00:00Notes: (Same as: Senokot) No Longer Active 11/26/2013 [facility] Docusate 100 mg, 1 cap, Route: PO, Drug form: CAP, Q12H, Dosing Weight 72.727, kg, Start date: 11/26/13 9:00:00, Duration: 30 day, Stop date: 12/25/13 21:00:00Notes: (Same as: Colace) (Do Not Crush) No Longer Active 11/26/2013 [facility] Saline Flush 0.9% 10 ml, Route: IVP, Drug Form: INJ, Dosing Weight 72.727, kg, PRN, PRN Line Flush, Start date: 11/26/13 8:56:00, Duration: 30 day, Stop date: 12/26/13 8:55:00Notes: (Same as: BD Posiflush) No Longer Active 11/26/2013 [facility] Ondansetron 4 mg, 2 mL, Route: IVP, Drug form: INJ, Q8H, Dosing Weight 72.727, kg, PRN Nausea & Vomiting, Start date: 11/26/13 8:56:00, Duration: 30 day, Stop date: 12/26/13 8:55:00Notes: (Same as: Zofran) No Longer Active 11/26/2013 [facility] Bisacodyl 10 mg, 1 supp, Route: VA, Drug form: SUPP, Daily, Dosing Weight 72.727, kg, PRN Constipation, Start date: 11/26/13 8:56:00, Duration: 30 day, Stop date: 12/26/13 8:55:00Notes: (Same As: Dulcolax, Bisco- Lax) No Longer Active 11/26/2013 [facility] Morphine 1 mg, 0.5 mL, Route: IVP, Drug form: INJ, Q1H, Dosing Weight 72.727, kg, PRN Pain Score 7-10, Start date: 11/26/13 8:56:00, Duration: 30 day, Stop date: 12/26/13 8:55:00Notes: (Same as:MORPhine Sulfate) No Longer Active 11/26/2013 [facility] Acetaminophen 325 MG / Hydrocodone Bitartrate 5 MG Oral Tablet 2 tab, Route: PO, Drug Form: TAB, Dosing Weight 72.727, kg, Q4H, PRN Pain Score 4-6, Start date: 11/26/13 8:56:00, Duration: 30 day, Stop date: 12/26/13 8:55:00Notes: (Same as: Darwin 325/5) Do not exceed 4gm/day of acetaminophen. No Longer Active 11/26/2013 [facility] Acetaminophen 650 mg, 20.3 mL, Route: PO, Drug form: LIQ, Q4H, Dosing Weight 72.727, kg, PRN Pain 1-3/Temp > 99.5 F, Start date: 11/26/13 8:56:00, Duration: 30 day, Stop date: 12/26/13 8:55:00Notes: Max acetaminop ilc=6188rs/day (4 gm/day). (Same as: Tylenol) No Longer Active 11/26/2013 [facility] Sodium Chloride 0.154 MEQ/ML Injectable Solution 1,000 mL, 1,000 ml/hr, Infuse Over: 1 hr, Route: IV, ONCE, Priority: STAT, Dosing Weight 72.727 kg, Start date: 11/26/13 6:40:00, Duration: 1 doses or times, Stop date: 11/26/13 6:40:00 Inactive 11/26/2013 [facility] Morphine 4 mg, Route: IVP, Drug form: INJ, ONCE, Dosing Weight 72.727, kg, Priority: STAT, Start date: 11/26/13 4:05:00, Stop date: 11/26/13 4:05:00 Inactive 11/26/2013 [facility] Potassium Chloride 10 mEq, PO, Daily, 0 Refill(s) Active 11/26/2013 [facility] Bumex 0 Refill(s) Inactive 11/26/2013 [facility] Zoloft 0 Refill(s) Inactive 11/26/2013 [facility] Allopurinol 0 Refill(s) Inactive 11/26/2013 [facility] Allergies, Adverse Reactions, Alerts No Known Medication Allergies Immunizations Immunization Date Given Site Status Last Updated Comments Source pneumococcal 23-valent vaccine 11/27/2013 Right deltoid completed [facility] [place] [place] influenza virus vaccine, inactivated 11/27/2013 Left deltoid completed [facility] Results Order Name Results Value Reference Range Date Interpretation Comments Source BACTERIAL - SEROLOGY MRSA by PCR Negative 5 (11/27/13 12:50 AM) 11/27/2013 <sup>5</sup>Interpretive Data: Interpretive Data: The [employer] Light[employer] MRSA assay is a qualitative test for the direct detection of nasal colonization with methicillin-resistant Staphylococcus aureus (MRSA) to aid in the prevention and control of MRSA infections in healthcare settings. A positive result does not indicate an infection or require treatment. A negative result does not exclude colonization or infection.

The polymerase chain reaction (PCR) assay detects a proprietary sequence indicative of the integration of the SCCmec cassette into the Staphylococcus aureus chromosome, indicating the presence of MRSA DNA. The assay utilizes FDA cleared IVD reagents. Performance characteristics have been verified by the [facility] Laboratory within the [facility]. The Molecular [facility] Laboratory is authorized under the Clinical Laboratory Improvement Amendment of 1988 (CLIA-88) to perform high complexity testing. [facility] CHEM PANEL eGFR 53 11/27/2013 <sup>1</sup>Result Comment: The eGFR is calculated using the CKD-EPI formula. In most young, healthy individuals the eGFR will be >90 mL/min/1.73m2. The eGFR declines with age. An eGFR of 60-89 may be normal in some populations, particularly the elderly, for whom the CKD-EPI formula has not been extensively validated. Use of the eGFR is not recommended in the following populations:& lt;br/>
Individuals with unstable creatinine concentrations, including patients and those with serious co-morbid conditions.

Patients with extremes in muscle mass or diet.

The data above are obtained from the National Kidney Disease Education Program (NKDEP) which additionally recommends that when the eGFR is used in patients with extremes of body mass index for purposes of drug dosing, the eGFR should be multiplied by the estimated BMI. [facility] CHEM PANEL AGAP 9.5 10.0 - 20.0 11/27/2013 [facility] CHEM PANEL Chloride Lvl 110 95 - 109 11/27/2013 [facility] CHEM PANEL CO2 27 24 - 32 11/27/2013 [facility] CHEM PANEL Creatinine Lvl 1.0 0.5 - 1.4 11/27/2013 [facility] CHEM PANEL Glucose Lvl 93 70 - 99 11/27/2013 <sup>3</sup>Interpretive Data: Adult reference range values reflect the clinical guidelines
of the [place] [employer]. [facility] CHEM PANEL BUN 24 7 - 22 11/27/2013 [facility] CHEM PANEL Sodium Lvl 143 135 - 145 11/27/2013 [facility] CHEM PANEL Potassium Lvl 3.5 3.5 - 5.1 11/27/2013 [facility] CHEM PANEL Calcium Lvl 8.6 8.5 - 10.5 11/27/2013 [facility] CHEM PANEL Magnesium Lvl 2.2 1.8 - 2.4 11/27/2013 [facility] CHEM PANEL Phosphorus 3.6 2.5 - 4.5 11/27/2013 [facility] HEMATOLOGY Basophils 0.5 0.0 - 1.0 11/27/2013 [facility] HEMATOLOGY Eosinophils 3.0 0.0 - 4.0 11/27/2013 [facility] HEMATOLOGY Monocytes 7.8 2.0 - 12.0 11/27/2013 [facility] HEMATOLOGY Lymphocytes # 1.2 1.0 - 5.5 11/27/2013 [facility] HEMATOLOGY Segs-Bands # 4.2 1.5 - 8.1 11/27/2013 [facility] HEMATOLOGY Eosinophils # 0.2 0.0 - 0.5 11/27/2013 [facility] HEMATOLOGY Monocytes # 0.5 0.0 - 0.8 11/27/2013 [facility] HEMATOLOGY Lymphocytes 20.2 20.0 - 40.0 11/27/2013 [facility] HEMATOLOGY Segs 68.5 45.0 - 75.0 11/27/2013 [facility] HEMATOLOGY MPV 8.9 7.4 - 10.4 11/27/2013 [facility] HEMATOLOGY MCHC 33.2 32.0 - 36.0 11/27/2013 [facility] HEMATOLOGY MCH 29.5 27.0 - 31.0 11/27/2013 [facility] HEMATOLOGY RBC 3.70 4.20 - 5.40 11/27/2013 [facility] HEMATOLOGY Platelet 185 133 - 450 11/27/2013 [facility] HEMATOLOGY RDW 15.1 11.5 - 14.5 11/27/2013 [facility] HEMATOLOGY WBC 6.1 3.7 - 10.4 11/27/2013 [facility] HEMATOLOGY Hgb 10.9 12.0 - 16.0 11/27/2013 [facility] HEMATOLOGY MCV 88.7 80.0 - 98.0 11/27/2013 [facility] HEMATOLOGY Hct 32.8 36.0 - 48.0 11/27/2013 [facility] PARATHYROID PROFILE Ca Norm WB 1.10 1.05 - 1.25 11/27/2013 [facility] PARATHYROID PROFILE Ca Ion WB 1.07 1.05 - 1.25 11/27/2013 [facility] HEMATOLOGY Estimated % Lysis 0.6 0.0 - 7.5 11/26/2013 [facility] HEMATOLOGY K-time 0.8 0.6 - 2.3 11/26/2013 [facility] HEMATOLOGY R-time 0.6 0.4 - 0.7 11/26/2013 [facility] HEMATOLOGY Angle 79 64 - 80 11/26/2013 [facility] HEMATOLOGY Split Point 0.5 11/26/2013 [facility] HEMATOLOGY Rapid TEG Sample Type Citrated Whole Blood 11/26/2013 [facility] HEMATOLOGY ACT (TEG) 105 86 - 118 11/26/2013 [facility] HEMATOLOGY G-value 13.2 5.0 - 11.6 11/26/2013 [facility] HEMATOLOGY Max Amp 73 52 - 71 11/26/2013 [facility] URINE AND STOOL UA Bacteria Few /HPF None Seen /HPF 11/26/2013 [facility] URINE AND STOOL UA RBC 0-2 /HPF 0 - 2 11/26/2013 [facility] URINE AND STOOL Micro? Performed (11/26/13 7:15 AM) 11/26/2013 [facility] URINE AND STOOL UA WBC 21-50 /HPF None Seen /HPF 11/26/2013 [facility] URINE AND STOOL UA Sq Epi Moderate /LPF Few /LPF 11/26/2013 [facility] URINE AND STOOL UA Bili Negative *NA* (11/26/13 7:15 AM) Negative 11/26/2013 [facility] URINE AND STOOL UA Blood Negative (11/26/13 7:15 AM) Negative 11/26/2013 [facility] URINE AND STOOL UA Urobilinogen 0.2 0.1 - 1.0 11/26/2013 [facility] URINE AND STOOL UA Nitrite Negative (11/26/13 7:15 AM) Negative 11/26/2013 [facility] URINE AND STOOL UA Leuk Est Moderate *ABN* (11/26/13 7:15 AM) Negative 11/26/2013 [facility] URINE AND STOOL UA Protein Negative (11/26/13 7:15 AM) Negative 11/26/2013 [facility] URINE AND STOOL UA Spec Grav 1.023 <=1.030 11/26/2013 [facility] URINE AND STOOL UA pH 5.5 5.0 - 8.0 11/26/2013 [facility] URINE AND STOOL UA Glucose Negative (11/26/13 7:15 AM) Negative 11/26/2013 [facility] URINE AND STOOL UA Ketones Negative *NA* (11/26/13 7:15 AM) Negative 11/26/2013 [facility] URINE AND STOOL UA Turbidity Slight Cloudy (11/26/13 7:15 AM) Clear 11/26/2013 [facility] URINE AND STOOL UA Color Yellow *NA* (11/26/13 7:15 AM) Yellow 11/26/2013 [facility] CARDIAC ENZYMES Troponin-I <0.02 0.00 - 0.40 11/26/2013 [facility] CARDIAC ENZYMES Total CK 32 12 - 191 11/26/2013 [facility] CHEM PANEL Lactic Acid WB 2.1 0.5 - 2.2 11/26/2013 [facility] CHEM PANEL eGFR 28 11/26/2013 <sup>2</sup>Result Comment: The eGFR is calculated using the CKD-EPI formula. In most young, healthy individuals the eGFR will be >90 mL/min/1.73m2. The eGFR declines with age. An eGFR of 60-89 may be normal in some populations, particularly the elderly, for whom the CKD-EPI formula has not been extensively validated. Use of the eGFR is not recommended in the following populations:& lt;br/>
Individuals with unstable creatinine concentrations, including patients and those with serious co-morbid conditions.

Patients with extremes in muscle mass or diet.

The data above are obtained from the National Kidney Disease Education Program (NKDEP) which additionally recommends that when the eGFR is used in patients with extremes of body mass index for purposes of drug dosing, the eGFR should be multiplied by the estimated BMI. [facility] CHEM PANEL Sodium Lvl 142 135 - 145 11/26/2013 [facility] CHEM PANEL BUN 23 7 - 22 11/26/2013 [facility] CHEM PANEL Glucose Lvl 112 70 - 99 11/26/2013 <sup>4</sup>Interpretive Data: Adult reference range values reflect the clinical guidelines
of the [place] [employer]. [facility] CHEM PANEL Creatinine Lvl 1.7 0.5 - 1.4 11/26/2013 [facility] CHEM PANEL Chloride Lvl 104 95 - 109 11/26/2013 [facility] CHEM PANEL Potassium Lvl 3.5 3.5 - 5.1 11/26/2013 [facility] CHEM PANEL Calcium Lvl 9.4 8.5 - 10.5 11/26/2013 [facility] CHEM PANEL CO2 27 24 - 32 11/26/2013 [facility] CHEM PANEL AGAP 14.5 10.0 - 20.0 11/26/2013 [facility] HEMATOLOGY Platelet 253 133 - 450 11/26/2013 [facility] HEMATOLOGY RDW 14.6 11.5 - 14.5 11/26/2013 [facility] HEMATOLOGY MPV 9.2 7.4 - 10.4 11/26/2013 [facility] HEMATOLOGY MCV 86.3 80.0 - 98.0 11/26/2013 [facility] HEMATOLOGY MCH 29.3 27.0 - 31.0 11/26/2013 [facility] HEMATOLOGY MCHC 33.9 32.0 - 36.0 11/26/2013 [facility] HEMATOLOGY WBC 9.6 3.7 - 10.4 11/26/2013 [facility] HEMATOLOGY RBC 4.60 4.20 - 5.40 11/26/2013 [facility] HEMATOLOGY Hct 39.7 36.0 - 48.0 11/26/2013 [facility] HEMATOLOGY Hgb 13.4 12.0 - 16.0 11/26/2013 [facility] HEMATOLOGY Eosinophils 2.4 0.0 - 4.0 11/26/2013 [facility] HEMATOLOGY Anisocyte 1+ *ABN* (11/26/13 4:36 AM) None Seen 11/26/2013 [facility] HEMATOLOGY Basophils 0.0 0.0 - 1.0 11/26/2013 [facility] HEMATOLOGY Segs-Bands # 7.0 1.5 - 8.1 11/26/2013 [facility] HEMATOLOGY Lymphocytes # 1.6 1.0 - 5.5 11/26/2013 [facility] HEMATOLOGY Monocytes # 0.8 0.0 - 0.8 11/26/2013 [facility] HEMATOLOGY Plt Morph Normal (11/26/13 4:36 AM) 11/26/2013 [facility] HEMATOLOGY Eosinophils # 0.2 0.0 - 0.5 11/26/2013 [facility] HEMATOLOGY Basophils # 0.0 0.0 - 0.2 11/26/2013 [facility] HEMATOLOGY Monocytes 7.9 2.0 - 12.0 11/26/2013 [facility] HEMATOLOGY Segs 72.9 45.0 - 75.0 11/26/2013 [facility] HEMATOLOGY Lymphocytes 16.8 20.0 - 40.0 11/26/2013 [facility] Pathology Reports No Data Provided for This Section Diagnostic Reports Report Value Date Source Spine lumbar 2 or 3 views DX Study: Lumbar spine, 3 views Clinical Indication: M19.041 Primary osteoarthritis, right hand, M10.9 Gout, unspecified,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 No acute compression fracture is seen. Grade 1 anterolisthesis of L4 over L5 by 2 mm is seen. Mild marginal osteophytes in the upper lumbar spine are seen. Moderate-severe disc height loss at L1-L2 and L2-L3 is seen, compatible with moderate-severe degenerative disc disease. Severe degenerative disc disease at L5-S1 is also seen. Mild degenerative disc disease at L4-L5 is present. Advanced facet arthrosis in the lower lumbar spine is present. Arterial calcifications are seen. IMPRESSION: Advanced degenerative changes of the lumbar spine. SL: [id number] 09/10/2015 [facility] Brain wo contrast MRI EXAM: MRI OF THE BRAIN WITHOUT CONTRAST DATE:Nov 27, 2013 06:16:00 AM CLINICAL HISTORY: Bleeding COMPARISON: CT brain without contrast dated November 26, 2013 TECHNIQUE : Multiplanar imaging of the brain was obtained without contrast. FINDINGS: A soft tissue injury of the scalp at the vertex is again noted. No evidence of acute intracranial hemorrhage is seen. Several scattered T2 hyperintensities are noted within the subcortical white matter. The brain has normal configuration and signal intensity without focal lesions. The isaac-white matter interfaces are preserved. The ventricles and sulci are normal. The vascular flow-voids are unremarkable. An 8mm left cerebellar convexity meningioma is again seen. The paranasal sinuses, orbits and mastoids are unremarkable. IMPRESSION: Scalp soft tissue injury with otherwise unremarkable MRI of the brain without contrast. 11/27/2013 [facility] Brain wo contrast CT EXAM: CT BRAIN WITHOUT CONTRAST. DATE: 11/26/2013 08:37:09 AM INDICATION: Bleeding COMPARISON: 11/26/2013 04:11 AM TECHNIQUE: Contiguous axial images of the brain were obtained from the skull base to the vertex without IV contrast. FINDINGS: An 8mm extra-axial mass with focal calcification continues to be seen along left cerebellar convexity, which is likely a meningioma. An area of hypodensity in the right midbrain which was seen on the prior exam is no longer evident. There is generalized age-related volume loss with prominence of the sulci and ventricles. The paranasal sinuses, orbits, and mastoids are unremarkable. The calvarial bones and skull base are intact. Posterior scalp swelling and skin claudia are noted. IMPRESSION: 1. Stable 8 mm meningioma along the left cerebellar convexity. 2. Area of hypodensity in the right midbrain which was seen on the prior exam is no longer evident. 3. Generalized age-related volume loss. 11/26/2013 [facility] Wrist complete ( min.3 views) EXAM: RIGHT HAND 3 VIEWS EXAM: RIGHT WRIST 4 VIEWS DATE: Nov 26, 2013 04:59 AM INDICATION: Trauma COMPARISON: None available TECHNIQUE: PA, lateral and oblique radiographs of the right hand and wrist. Additional scaphoid view of the wrist FINDINGS: The bones are diffusely osteopenic. There are chronic, healed fractures of the distal radial and ulnar shafts. No acute fractures are identified. There is normal alignment at the wrist. Joint space narrowing is seen at the interphalangeal and carpometacarpal joints, likely due to osteoarthrosis. Degenerative changes are seen at the first CMC joint. IMPRESSION: 1. No acute fracture. 2. Chronic, healed fractures of the distal radial and ulnar shafts. 3. Joint space narrowing at the interphalangeal and carpometacarpal joints, likely due to osteoarthrosis. 4. Osteopenia. 11/26/2013 [facility] Hand AP lateral oblique EXAM: RIGHT HAND 3 VIEWS EXAM: RIGHT WRIST 4 VIEWS DATE: Nov 26, 2013 04:59 AM INDICATION: Trauma COMPARISON: None available TECHNIQUE: PA, lateral and oblique radiographs of the right hand and wrist. Additional scaphoid view of the wrist FINDINGS: The bones are diffusely osteopenic. There are chronic, healed fractures of the distal radial and ulnar shafts. No acute fractures are identified. There is normal alignment at the wrist. Joint space narrowing is seen at the interphalangeal and carpometacarpal joints, likely due to osteoarthrosis. Degenerative changes are seen at the first CMC joint. IMPRESSION: 1. No acute fracture. 2. Chronic, healed fractures of the distal radial and ulnar shafts. 3. Joint space narrowing at the interphalangeal and carpometacarpal joints, likely due to osteoarthrosis. 4. Osteopenia. 11/26/2013 [facility] Chest 2 views EXAM: CHEST 2 VIEW DATE: Nov 26, 2013 04:46 AM INDICATION: TIA COMPARISON: None available. TECHNIQUE: PA and lateral views of the chest FINDINGS: The heart is normal in size. Surgical clips are seen projecting over the left hemithorax. A soft tissue density projects posterior to the heart on the lateral projection with associated air-fluid levels, representing a hiatal hernia. No focal consolidation, pleural effusion, pneumothorax is present. No acute bony abnormality is identified. IMPRESSION: 1. Moderate-sized hiatal hernia. 2. No acute cardiopulmonary abnormality. 11/26/2013 [facility] Brain wo contrast CT EXAM: CT BRAIN WITHOUT CONTRAST. DATE: 11/26/2013 04:20:00 AM INDICATION: Headache with Trauma COMPARISON: None available. TECHNIQUE: Contiguous axial images of the brain were obtained from the skull base to the vertex without IV contrast. FINDINGS: There is an 8mm extra-axial mass with focal calcification seen along left cerebellar convexity, which is likely a meningioma. An area of hypodensity is seen in the right midbrain which may represent artifact, although an infarct cannot be excluded. There is generalized age-related volume loss with prominence of the sulci and ventricles. Posterior scalp swelling and skin claudia are noted. The paranasal sinuses, orbits and mastoids are unremarkable. The calvarial bones and skull base are intact. Posterior scalp swelling and skin claudia are noted. IMPRESSION: 1. 8 mm meningioma along the left cerebellar convexity. 2. Area of hypodensity in the right midbrain which may represent artifact, although infarct cannot be excluded. Represent short term CT followup. 3. Generalized age-related volume loss. 11/26/2013 [facility] Consultation Notes No Data Provided for This Section Discharge Summaries No Data Provided for This Section History and Physicals No Data Provided for This Section Vital Signs Vital Sign Value Date Comments Source Weight 180.0 12/13/2013 [facility] Height 65 12/13/2013 [facility] Temperature Oral (F) 96.4 F 12/13/2013 [facility] Heart Rate 55 12/13/2013 [facility] Systolic (mm Hg) 156 12/13/2013 [facility] Diastolic (mm Hg) 72 12/13/2013 [facility] Respitory Rate 20 11/27/2013 [facility] Systolic (mm Hg) 109 11/27/2013 [facility] Diastolic (mm Hg) 55 11/27/2013 [facility] Respitory Rate 24 11/27/2013 [facility] Systolic (mm Hg) 136 11/27/2013 [facility] Diastolic (mm Hg) 66 11/27/2013 [facility] Systolic (mm Hg) 128 11/27/2013 [facility] Respitory Rate 16 11/27/2013 [facility] Diastolic (mm Hg) 63 11/27/2013 [facility] Heart Rate 61 11/27/2013 [facility] Heart Rate 62 11/27/2013 [facility] Temperature Oral (F) 98.1 F 11/26/2013 [facility] Heart Rate 60 11/26/2013 [facility] Temperature Oral (F) 97.8 F 11/26/2013 [facility] Height 154.94 cm 11/26/2013 [facility] BMI Calculated 30.29 11/26/2013 [facility] Weight 72.727 11/26/2013 [facility] Temperature Oral (F) 96.7 F 11/26/2013 [facility] Height 154.94 cm 11/26/2013 [facility] Weight 72.727 11/26/2013 [facility] BMI Calculated 30.29 11/26/2013 [facility] Encounters Location Location Details Encounter Type Encounter Number Reason For Visit Attending Provider ADM Date DC Date Status Source [facility] Inpatient [id number] Mayo Bhandari 11/26/2013 11/27/2013 [facility] [place] Lab Report [id number] Alec Santa MD 12/14/2013 12/14/2013 [facility] Outpatient [id number] Carmelina Pham 09/10/2015 09/11/2015 [facility] Procedures Procedure Code Date Perfomer Comments Source Abdominal hysterectomy [id number] [facility] Appendectomy [id number] [facility] Bilateral replacement of knee joints [id number] [facility] Foot joint operations<sup>1</sup> [id number] rods placed in feet to immobilize the bones [facility] Repair of stomach [id number] [facility] Assessment and Plan No Data Provided for This Section Plan of Care No Data Provided for This Section Social History Social History Date Source Social History TypeResponse Smoking Status Never smoker; Exposure to Tobacco Smoke None; Cigarette Smoking Last 365 Days No; Reg Smoking Cessation Counseling No 11/26/2013 [facility] Social History TypeResponse Smoking Status Never smoker, Exposure to Tobacco Smoke None, Cigarette Smoking Last 365 Days No, Reg Smoking Cessation Counseling No 11/26/2013 [facility] Family History No Data Provided for This Section Advance Directives No Data Provided for This Section Functional Status No Data Provided for This Section
--- OUTSIDE RECORDS SUMMARY | 2018-10-22 01:44 | XMS REPORT | Continuity of Care Document ---
Author Author MNA Organization MNA Address Unknown Phone Unavailable Care Team Providers Care Smart Energy Specialist Name Role Phone MD Kiet, Alec WARNER Unavailable Insurance Providers Payer name Policy type / Coverage type Policy ID Covered constitution party ID Policy [employer] MEDICARE B-[place]: [address] [employer] [place] - PLAN F (MEDICARE SUPPLEMEN Encounters Encounter Performer Location Date Lab Report Alec Santa MD [facility] [place] Dec 14, 2013 Problems Problem Effective Dates Problem Status HISTORY OF ARTHRITIS Dec 13, 2013 Active STATUS POST HYSTERECTOMY Dec 13, 2013 Active 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, 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, 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
--- OUTSIDE RECORDS SUMMARY | 2018-10-22 01:44 | XMS REPORT | Summary of Care ---
Author Organization Unknown Address Unknown Phone Unavailable Encounter [facility](STEVEN) [id number] Date(s): 11/26/13 - 11/27/[address] Discharge Disposition: Home Physician Attending: Alec Santa MD Physician Admitting: Matt Salgado MD Physician_Referring: Mayo Bhandari MD Reason for Visit CONTUSIONS VS MENINGIOMA Vital Signs 1 2 3 Most recent to oldest [Reference Range]: 154.94 cm (11/26/13 3:16 AM) 154.94 cm (11/26/13 2:58 AM) Height 98.1 DegF (11/26/13 9:18 AM) 97.8 DegF (11/26/13 6:50 AM) 96.7 DegF (11/26/13 3:16 AM) Temperature Oral [96.4-99.1 DegF] 109 mmHg (11/27/13 12:00 PM) 136 mmHg (11/27/13 11:00 AM) 128 mmHg (11/27/13 10:00 AM) Systolic Blood Pressure [90-140 mmHg] 55 mmHg *LOW* (11/27/13 12:00 PM) 66 mmHg (11/27/13 11:00 AM) 63 mmHg (11/27/13 10:00 AM) Diastolic Blood Pressure [60-90 mmHg] 20 BRMIN (11/27/13 12:31 PM) 24 BRMIN *HI* (11/27/13 11:00 AM) 16 BRMIN (11/27/13 10:00 AM) Respiratory Rate [14-20 BRMIN] 61 bpm (11/27/13 6:15 AM) 62 bpm (11/27/13 6:05 AM) 60 bpm (11/26/13 7:34 AM) Peripheral Pulse Rate [60-100 bpm] 72.727 kg (11/26/13 3:16 AM) 72.727 kg (11/26/13 2:58 AM) Weight 30.29 m2 (11/26/13 3:16 AM) 30.29 m2 (11/26/13 2:58 AM) Body Mass Index Problem List Condition Effective Dates Status Health Status Informant Gouty Resolved arthritis(Confirmed) Allergies, Adverse Reactions, Alerts Substance Reaction Severity Status NKDA Active Medications acetaminophen 650 mg, 20.3 mL, Route: PO, Drug form: LIQ, Q4H, Dosing Weight 72.727, kg, PRN P ain 1-3/Temp > 99.5 F, Start date: 11/26/13 8:56:00, Duration: 30 day, Stop date: 12/26/13 8:55:00 Notes: Max jtyhozgjinhtt=3972jz/day (4 gm/day). (Same as: Tylenol) Start Date: 11/26/13 Stop Date: 11/27/13 Status: Discontinued acetaminophen-hydrocodone 325 mg-5 mg oral tablet 2 tab, Route: PO, Drug Form: TAB, Dosing Weight 72.727, kg, Q4H, PRN Pain Score 4-6, Start date: 11/26/13 8:56:00, Duration: 30 day, Stop date: 12/26/13 8:55:00 Notes: (Same as: [place] 325/5) Do not exceed 4gm/day of acetaminophen. Start Date: 11/26/13 Stop Date: 11/27/13 Status: Discontinued acetaminophen-hydrocodone 325 mg-5 mg oral tablet 1 tab, Route: PO, Drug Form: TAB, Dosing Weight 72.727, kg, Q4H, PRN Pain Score 1-3, Start date: 11/26/13 8:56:00, Duration: 30 day, Stop date: 12/26/13 8:55:00 Notes: (Same as: [place] 325/5) Do not exceed 4gm/day of acetaminophen. Start Date: 11/26/13 Stop Date: 11/27/13 Status: Discontinued alendronate 70 mg oral tablet 70 mg=1 tab, PO, Q7D, 0 Refill(s) Start Date: 11/26/13 Status: Ordered allopurinol 0 Refill(s) Start Date: 11/26/13 Stop Date: 11/26/13 Status: Discontinued allopurinol 300 mg oral tablet 300 mg=1 tab, PO, Daily, # 30 tab, 0 Refill(s) Start Date: 11/26/13 Status: Ordered bisacodyl 10 mg, 1 supp, Route: FL, Drug form: SUPP, Daily, Dosing Weight 72.727, kg, PRN Constipation, Start date: 11/26/13 8:56:00, Duration: 30 day, Stop date: 4 8:55:00 Notes: (Same As: Dulcolax, [place]-Lax) Start Date: 11/26/13 Stop Date: 11/27/13 Status: Discontinued bumetanide 2 mg oral tablet 2 mg=1 tab, PO, BID, # 30 tab, 0 Refill(s) Start Date: 11/26/13 Status: Ordered Bumex 0 Refill(s) Start Date: 11/26/13 Stop Date: 11/26/13 Status: Discontinued docusate 100 mg, 1 cap, Route: PO, Drug form: CAP, Q12H, Dosing Weight 72.727, kg, Start date: 11/26/13 9:00:00, Duration: 30 day, Stop date: 12/25/13 21:00:00 Notes: (Same as: Colace) (Do Not Crush) Start Date: 11/26/13 Stop Date: 11/27/13 Status: Discontinued Ibu 600 mg oral tablet 600 mg, PO, Q6H, Pain, Take with food, # 30 tab, 0 Refill(s) Special Instructions: Take with food Start Date: 11/27/13 Stop Date: 12/05/13 Status: Ordered influenza virus vaccine, inactivated 0.5 ml, Route: IM, Drug Form: SUSP, Daily, Start date: 11/27/13 9:00:00, Stop da te: 11/27/13 21:00:00 Notes: (Same as: Fluzone Quadrivalent) Start Date: 11/27/13 Stop Date: 11/27/13 Status: Discontinued K-Dur 20 40 mEq, 2 tab, Route: PO, Drug form: ERTAB, ONCE, Start date: 11/27/13 3:00:00, Stop date: 11/27/13 3:00:00 Notes: (Same as: K-Dur 20)"Do Not Crush" With food and full glass of water Start Date: 11/27/13 Stop Date: 11/27/13 Status: Completed morphine Sulfate 1 mg, 0.5 mL, Route: IVP, Drug form: INJ, Q1H, Dosing Weight 72.727, kg, PRN Natalia n Score 7-10, Start date: 11/26/13 8:56:00, Duration: 30 day, Stop date: 4 8:55:00 Notes: (Same as:MORPhine Sulfate) Start Date: 11/26/13 Stop Date: 11/27/13 Status: Discontinued morphine Sulfate 4 mg, Route: IVP, Drug form: INJ, ONCE, Dosing Weight 72.727, kg, Priority: STAT , Start date: 11/26/13 4:05:00, Stop date: 11/26/13 4:05:00 Start Date: 11/26/13 Stop Date: 11/26/13 Status: Completed naloxone-pentazocine 0.5 mg-50 mg oral tablet 3 tab, PO, TID, 0 Refill(s) Start Date: 11/26/13 Status: Ordered NS (Bolus) IV 1,000 mL, 1,000 ml/hr, Infuse Over: 1 hr, Route: IV, ONCE, Priority: STAT, Dosin g Weight 72.727 kg, Start date: 11/26/13 6:40:00, Duration: 1 doses or times, St op date: 11/26/13 6:40:00 Start Date: 11/26/13 Stop Date: 11/26/13 Status: Completed NS 1,000 mL 1,000 mL, Rate: 75 ml/hr, Infuse over: 13.3 hr, Route: IV, Dosing Weight 72.727 kg, Total Volume: 1,000, Start date: 11/26/13 12:11:00, Duration: 30 day, Stop d ate: 12/26/13 12:10:00 Start Date: 11/26/13 Stop Date: 11/27/13 Status: Discontinued ondansetron 4 mg, 2 mL, Route: IVP, Drug form: INJ, Q8H, Dosing Weight 72.727, kg, PRN Nause a & Vomiting, Start date: 11/26/13 8:56:00, Duration: 30 day, Stop date: 12/26/13 8:55:00 Notes: (Same as: Zofran) Start Date: 11/26/13 Stop Date: 11/27/13 Status: Discontinued pneumococcal 23-valent vaccine 0.5 ml, Route: IM, Drug Form: INJ, Daily, Start date: 11/27/13 9:00:00, Stop quentin e: 11/27/13 21:00:00 Notes: (Same as: Pneumovax 23) Refrigerate Start Date: 11/27/13 Stop Date: 11/27/13 Status: Discontinued potassium chloride 10 mEq, PO, Daily, 0 Refill(s) Start Date: 11/26/13 Status: Ordered Saline Flush 0.9% 10 ml, Route: IVP, Drug Form: INJ, Dosing Weight 72.727, kg, Q12H, Start date: 0 11/26/13 9:00:00, Duration: 30 day, Stop date: 12/25/13 21:00:00 Notes: Same as: BD Posiflush Sterile Start Date: 11/26/13 Stop Date: 11/27/13 Status: Discontinued Saline Flush 0.9% 10 ml, Route: IVP, Drug Form: INJ, Dosing Weight 72.727, kg, PRN, PRN Line Flush , Start date: 11/26/13 8:56:00, Duration: 30 day, Stop date: 12/26/13 8:55:00 Notes: (Same as: BD Posiflush) Start Date: 11/26/13 Stop Date: 11/27/13 Status: Discontinued senna 8.6 mg, 1 tab, Route: PO, Drug Form: TAB, Dosing Weight 72.727, kg, Q12H, Start date: 11/26/13 9:00:00, Duration: 30 day, Stop date: 12/25/13 21:00:00 Notes: (Same as: Senokot) Start Date: 11/26/13 Stop Date: 11/27/13 Status: Discontinued sertraline 100 mg oral tablet 100 mg=1 tab, PO, Daily, # 30 tab, 0 Refill(s) Start Date: 11/26/13 Status: Ordered temazepam 30 mg oral capsule 30 mg=1 cap, PO, Bedtime, 0 Refill(s) Start Date: 11/26/13 Status: Ordered Zoloft 0 Refill(s) Start Date: 11/26/13 Stop Date: 11/26/13 Status: Discontinued Results ELECTROLYTES Most recent to 1 2 oldest [Reference Range]: Sodium Lvl [135-145 143 mEq/L 142 mEq/L mEq/L] (11/27/13 12:50 AM) (11/26/13 4:36 AM) Potassium Lvl 3.5 mEq/L 3.5 mEq/L [3.5-5.1 mEq/L] (11/27/13 12:50 AM) (11/26/13 4:36 AM) Chloride Lvl [95-109 110 mEq/L 104 mEq/L mEq/L] *HI* (11/26/13 4:36 AM) (11/27/13 12:50 AM) CO2 [24-32 mEq/L] 27 mEq/L 27 mEq/L (11/27/13 12:50 AM) (11/26/13 4:36 AM) AGAP [10.0-20.0 9.5 mEq/L 14.5 mEq/L mEq/L] *LOW* (11/26/13 4:36 AM) (11/27/13 12:50 AM) CHEM PANEL Most recent to 1 2 oldest [Reference Range]: Creatinine Lvl 1.0 mg/dL 1.7 mg/dL [0.5-1.4 mg/dL] (11/27/13 12:50 AM) *HI* (11/26/13 4:36 AM) eGFR 53 mL/min/1.73m2 1 28 mL/min/1.73m2 2 *NA* *NA* (11/27/13 12:50 AM) (11/26/13 4:36 AM) BUN [7-22 mg/dL] 24 mg/dL 23 mg/dL *HI* *HI* (11/27/13 12:50 AM) (11/26/13 4:36 AM) Glucose Lvl [70-99 93 mg/dL 3 112 mg/dL 4 mg/dL] (11/27/13 12:50 AM) *HI* (11/26/13 4:36 AM) Calcium Lvl 8.6 mg/dL 9.4 mg/dL [8.5-10.5 mg/dL] (11/27/13 12:50 AM) (11/26/13 4:36 AM) Phosphorus [2.5-4.5 3.6 mg/dL mg/dL] (11/27/13 12:50 AM) Magnesium Lvl 2.2 mg/dL [1.8-2.4 mg/dL] (11/27/13 12:50 AM) Lactic Acid WB 2.1 mmol/L [0.5-2.2 mmol/L] (11/26/13 4:36 AM) 1Result Comment: The eGFR is calculated using the CKD-EPI formula. In most young, healthy individuals the eGFR will be >90 mL/min/1.73m2. The eGFR declines with age. An eGFR of 60-89 may be normal in some populations, particularly the elderly, for whom the CKD-EPI formula has not been extensively validated. Use of the eGFR is not recommended in the following populations: Individuals with unstable creatinine concentrations, including patients and those with serious co-morbid conditions. Patients with extremes in muscle mass or diet. The data above are obtained from the National Kidney Disease Education Program ( NKDEP) which additionally recommends that when the eGFR is used in patients with extremes of body mass index for purposes of drug dosing, the eGFR should be mul tiplied by the estimated BMI. 2Result Comment: The eGFR is calculated using the CKD-EPI formula. In most young, healthy individuals the eGFR will be >90 mL/min/1.73m2. The eGFR declines with age. An eGFR of 60-89 may be normal in some populations, particularly the elderly, for whom the CKD-EPI formula has not been extensively validated. Use of the eGFR is not recommended in the following populations: Individuals with unstable creatinine concentrations, including patients and those with serious co-morbid conditions. Patients with extremes in muscle mass or diet. The data above are obtained from the National Kidney Disease Education Program ( NKDEP) which additionally recommends that when the eGFR is used in patients with extremes of body mass index for purposes of drug dosing, the eGFR should be mul tiplied by the estimated BMI. 3Interpretive Data: Adult reference range values reflect the clinical guidelines of the [place] [employer]. 4Interpretive Data: Adult reference range values reflect the clinical guidelines of the [place] [employer]. CARDIAC ENZYMES Most recent to 1 2 oldest [Reference Range]: Total CK [12-191 32 unit/L unit/L] (11/26/13 4:36 AM) Troponin-I <0.02 ng/mL [0.00-0.40 ng/mL] (11/26/13 4:36 AM) PARATHYROID PROFILE Most recent to 1 2 oldest [Reference Range]: Ca Ion WB [1.05-1.25 1.07 mMol/L mMol/L] (11/27/13 12:50 AM) Ca Norm WB 1.10 mMol/L [1.05-1.25 mMol/L] (11/27/13 12:50 AM) URINE AND STOOL Most recent to 1 2 oldest [Reference Range]: UA Turbidity [Clear] Slight Cloudy (11/26/13 7:15 AM) UA Color [Yellow] Yellow *NA* (11/26/13 7:15 AM) UA pH [5.0-8.0] 5.5 (11/26/13 7:15 AM) UA Spec Grav 1.023 [<=1.030] *NA* (11/26/13 7:15 AM) UA Glucose Negative [Negative] (11/26/13 7:15 AM) UA Blood [Negative] Negative (11/26/13 7:15 AM) UA Ketones Negative [Negative] *NA* (11/26/13 7:15 AM) UA Protein Negative [Negative] (11/26/13 7:15 AM) UA Urobilinogen 0.2 EU/dL [0.1-1.0 EU/dL] (11/26/13 7:15 AM) UA Bili [Negative] Negative *NA* (11/26/13 7:15 AM) UA Leuk Est Moderate [Negative] *ABN* (11/26/13 7:15 AM) UA Nitrite Negative [Negative] (11/26/13 7:15 AM) UA WBC [None Seen 21-50 /HPF /HPF] *ABN* (11/26/13 7:15 AM) UA RBC [0-2 /HPF] 0-2 /HPF (11/26/13 7:15 AM) UA Bacteria [None Few /HPF Seen /HPF] (11/26/13 7:15 AM) UA Sq Epi [Few /LPF] Moderate /LPF *ABN* (11/26/13 7:15 AM) Micro? Performed (11/26/13 7:15 AM) HEMATOLOGY Most recent to 1 2 oldest [Reference Range]: WBC [3.7-10.4 K/CMM] 6.1 K/CMM 9.6 K/CMM (11/27/13 12:50 AM) (11/26/13 4:36 AM) RBC [4.20-5.40 3.70 M/CMM 4.60 M/CMM M/CMM] *LOW* (11/26/13 4:36 AM) (11/27/13 12:50 AM) Hgb [12.0-16.0 g/dL] 10.9 g/dL 13.4 g/dL *LOW* (11/26/13 4:36 AM) (11/27/13 12:50 AM) Hct [36.0-48.0 %] 32.8 % 39.7 % *LOW* (11/26/13 4:36 AM) (11/27/13 12:50 AM) MCV [80.0-98.0 fL] 88.7 fL 86.3 fL (11/27/13 12:50 AM) (11/26/13 4:36 AM) MCH [27.0-31.0 pg] 29.5 pg 29.3 pg (11/27/13 12:50 AM) (11/26/13 4:36 AM) MCHC [32.0-36.0 33.2 g/dL 33.9 g/dL g/dL] (11/27/13 12:50 AM) (11/26/13 4:36 AM) RDW [11.5-14.5 %] 15.1 % 14.6 % *HI* *HI* (11/27/13 12:50 AM) (11/26/13 4:36 AM) Platelet [133-450 185 K/CMM 253 K/CMM K/CMM] (11/27/13 12:50 AM) (11/26/13 4:36 AM) MPV [7.4-10.4 fL] 8.9 fL 9.2 fL (11/27/13 12:50 AM) (11/26/13 4:36 AM) Segs [45.0-75.0 %] 68.5 % 72.9 % (11/27/13 12:50 AM) (11/26/13 4:36 AM) Lymphocytes 20.2 % 16.8 % [20.0-40.0 %] (11/27/13 12:50 AM) *LOW* (11/26/13 4:36 AM) Monocytes [2.0-12.0 7.8 % 7.9 % %] (11/27/13 12:50 AM) (11/26/13 4:36 AM) Eosinophils [0.0-4.0 3.0 % 2.4 % %] (11/27/13 12:50 AM) (11/26/13 4:36 AM) Basophils [0.0-1.0 0.5 % 0.0 % %] (11/27/13 12:50 AM) (11/26/13 4:36 AM) Segs-Bands # 4.2 K/CMM 7.0 K/CMM [1.5-8.1 K/CMM] (11/27/13 12:50 AM) (11/26/13 4:36 AM) Lymphocytes # 1.2 K/CMM 1.6 K/CMM [1.0-5.5 K/CMM] (11/27/13 12:50 AM) (11/26/13 4:36 AM) Monocytes # [0.0-0.8 0.5 K/CMM 0.8 K/CMM K/CMM] (11/27/13 12:50 AM) (11/26/13 4:36 AM) Eosinophils # 0.2 K/CMM 0.2 K/CMM [0.0-0.5 K/CMM] (11/27/13 12:50 AM) (11/26/13 4:36 AM) Basophils # [0.0-0.2 0.0 K/CMM K/CMM] (11/26/13 4:36 AM) Anisocyte [None 1+ Seen] *ABN* (11/26/13 4:36 AM) Plt Morph Normal (11/26/13 4:36 AM) Rapid TEG Sample Citrated Whole Blood Type *NA* (11/26/13 7:40 AM) ACT (TEG) [86-118 105 seconds seconds] (11/26/13 7:40 AM) Split Point 0.5 minutes *NA* (11/26/13 7:40 AM) R-time [0.4-0.7 0.6 minutes minutes] (11/26/13 7:40 AM) K-time [0.6-2.3 0.8 minutes minutes] (11/26/13 7:40 AM) Angle [64-80 79 degrees degrees] (11/26/13 7:40 AM) Max Amp [52-71 mm] 73 mm *HI* (11/26/13 7:40 AM) G-value [5.0-11.6 K 13.2 K d/sc d/sc] *HI* (11/26/13 7:40 AM) Estimated % Lysis 0.6 % [0.0-7.5 %] (11/26/13 7:40 AM) BACTERIAL - SEROLOGY Most recent to 1 2 oldest [Reference Range]: MRSA by PCR Negative 5 (11/27/13 12:50 AM) 5Interpretive Data: Interpretive Data: The [employer] MRSA [...] reaction (PCR) assay detects a proprietary sequence indicat yomi of the integration of the SCCmec cassette into the Staphylococcus aureus chr omosome, indicating the presence of MRSA DNA. The assay utilizes FDA cleared IV D reagents. Performance characteristics have been verified by the [facility] within the [facility]. The [facility] is authorized under the Clinical Laboratory Improvement Amendment of 1 988 (CLIA-88) to perform high complexity testing. Medications Administered During Your Visit No data available for this section Immunizations Vaccine Date Refusal Reason influenza virus vaccine, inactivated 11/27/13 pneumococcal 23-valent vaccine 11/27/13 Procedures Procedure Type Body Site Date of Procedure Related Diagnosis Abdominal hysterectomy Appendectomy Bilateral replacement of knee joints Foot joint operations1 Repair of stomach 1rods placed in feet to immobilize the bones Social History Social History Type Response Smoking Status Never smoker, Exposure to Tobacco Smoke None, Cigarette Smoking Last 365 Days No, Reg Smoking Cessation Counseling No
--- OUTSIDE RECORDS SUMMARY | 2018-10-22 01:44 | XMS REPORT | Continuity of Care Document ---
Author Author MNA Organization MNA Address Unknown Phone Unavailable Care Team Providers Care Software Release Manager Name Role Phone MD Kiet, Alec WARNER Unavailable Insurance Providers Payer name Policy type / Coverage type Policy ID Covered alliance party ID Policy [employer] MEDIC[place] [employer] [place] - PLAN F (MEDICARE SUPPLEMEN Encounters Encounter Performer Location Date Lab Report Alec Santa MD [facility] Dec 14, 2013 Problems Problem Effective Dates Problem Status HISTORY OF ARTHRITIS Dec 13, 2013 Active STATUS POST HYSTERECTOMY Dec 13, 2013 Active 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, 2013 Active Medications Medication Instructions Start Date Status KLOR-CON [...]
--- OUTSIDE RECORDS SUMMARY | 2018-10-22 01:44 | XMS REPORT | Summary of Care ---
Author Author [facility] Organization [facility] Address Unknown Phone Unavailable Encounter HQ Princess(STEVEN) [id number] Date(s): 09/10/15 - 09/10/15 [facility] [address] [place] [address]- Discharge Disposition: Home Attending Physician: Carmelina Pham MD Admitting Physician: Carmelina Pham MD Vital Signs No data available for this section Problem List Condition Effective Dates Status Health Status Informant Benign neoplasm of 12/13/13 Active cerebral meninges1 Gouty Resolved arthritis(Confirmed) [facility] Allergies, Adverse Reactions, Alerts Substance Reaction Severity Status NKDA Active Medications No data available for this section Results No data available for this section Immunizations Given and Recorded Vaccine Date Status Refusal Reason influenza virus vaccine, inactivated 11/27/13 Given pneumococcal 23-valent vaccine 11/27/13 Given Procedures Procedure Date Related Diagnosis Body Site Abdominal hysterectomy Appendectomy Bilateral replacement of knee joints Foot joint operations1 Repair of stomach 1rods placed in feet to immobilize the bones Social History Social History Type Response Smoking Status Never smoker; Exposure to Tobacco Smoke None; Cigarette Smoking Last 365 Days No; Reg Smoking Cessation Counseling No Assessment and Plan No data available for this section
[2018-10-22] MEDS: TRAMADOL HCL 50 MG TAB PO ONE (01:48)
--- NOTE | 2018-10-22 02:49 | Diagnostic Imaging Report ---
X-RAY LEFT WRIST 3 VIEWS, X-RAY LEFT HAND 3 VIEWS HISTORY: Pain. COMPARISON: None available. FINDINGS: Bones: No acute displaced fracture. Osseous alignment is within normal limits. Marked decreased bone mineralization. Joints: Joint space narrowing in the fingers and subtle osteophytes. Soft tissues: Mild soft tissue swelling along the lateral aspect of the proximal hand and wrist. IMPRESSION: 1. No acute displaced fracture. 2. Mild soft tissue swelling along the lateral aspect of the proximal hand and wrist. 3. 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 4. Marked decreased bone mineralization. Signed by: Magdaleno Pierce DO on 10/22/2018 2:46 AM
[2018-10-22 02:50] VITALS: BP 161/106
== END 2018-10-22 02:56 | disposition home or self-care (01) ==
LOC: ER 01:39
DX: S60.212A Contusion of left wrist, initial encounter (principal); S60.222A Contusion of left hand, initial encounter; W22.8XXA Striking against or struck by other objects, initial encounter; Y92.009 Unspecified place in unspecified non-institutional (private) residence as the place of occurrence of the external cause
CPT/HCPCS: 99283